=== PATIENT | male | born 1955 | race Caucasian/White ===

== ENCOUNTER 2025-03-10 16:55 | Inpatient (IN) | payer OTHER, SELFPAY ==
[2025-03-10] VITALS (9 sets, daily range): BP systolic 129–173; BP diastolic 69–103; BMI 36.7; BMI 35.5
[2025-03-10 11:54] LABS: Hematocrit 40.5 % (39.0-52.0); Hemoglobin 13.7 g/dL (13.0-18.0); Mean Corp Hgb Conc. 33.8 g/dL (33.0-37.0); Mean Corpuscular Volume 88.8 fL (80.0-94.0); Nucleated Red Blood Cells % 0 % (-); Platelet Count 137 10^3/uL (130-400); Red Cell Dist. Width 13.2 % (11.5-14.5)
[2025-03-10 12:10] LABS: COVID-19 Antigen Negative (Negative)
[2025-03-10] MEDS: DUONEB 3 ML INH (12:31)
[2025-03-10] MEDS: SOLU-MEDROL PF 125 MG IV (12:31)
[2025-03-10 12:33] LABS: ALT (SGPT) 24 U/L (0-50); AST (SGOT) 19 U/L (17-59); Albumin 4.0 g/dl (3.5-5.0); Alkaline Phosphatase 114 U/L (38-126); Blood Urea Nitrogen 14 mg/dl (9-20); Calcium 8.3 mg/dl (8.4-10.2); Carbon Dioxide 24 mmol/L (22-30); Chloride 104 mmol/L (98-107); Glucose 225 mg/dl (70-99); Potassium 4.1 mmol/L (3.5-5.1); Sodium 136 mmol/L (135-145); Total Protein 7.0 g/dl (6.3-8.2); Troponin I < 0.012 ng/ml; eGFR > 60.00
--- NOTE | 2025-03-10 12:40 | ED.GENMED ---
History of Present Illness
General
Chief Complaint: Breathing Problem
Time Seen by Provider: 03/10/25 11:37
History of Present Illness
History of Present Illness:
69-year-old male with with history of high blood pressure and diabetes presenting for shortness of breath. Patient reports symptoms started this morning, nonexertional. Noted a pressure in his chest with difficulty breathing, which prompted him to
call the ambulance. Per ambulance, was noted to be hypoxic to the 70s on room air. He was placed on nasal cannula. On arrival, patient was hypoxic to the 80s which has since improved here on nasal cannula. Patient was given 1 albuterol inhaler.
Denies any active tobacco abuse, however does note history of smoking, recently quit. Denies any known history of COPD. Reports a cough today. Denies any present chest pain. Denies known cardiac history. Denies abdominal pain or GI symptoms.
Denies additional acute medical complaints
Past History
Past History
ED Past Medical History: CVA, HTN and Other (TIA, hypertension, hyperlipidemia,)
Social History
Tobacco: Smoker
Alcohol: None
Personal: Single
Living: with family
Employment: Employed
Family History
Family History: Negative Diabetes, Hypertension or CAD
Phy Exam
Physical Exam
Physical Exam:
General: Well-appearing, no clinical signs of dehydration, nontoxic and in no acute distress
HEENT: protecting airway
Neck: appears supple
CV: Normal heart rate, regular rhythm, no evidence of cyanosis
Resp: Mild increased work of breathing, lungs clear to auscultation bilaterally
Abd: No distention
Extremities: No deformities, no swelling
Neuro: alert, no focal neurologic deficit
: deferred
Rectal: deferred
Psych: Normal affect
Skin: Intact
Scores
Heart Failure Risk
Heart Failure Risk Score: Yes
History of Stroke or TIA: No
History of intubation for respiratory distress: No
Heart rate on ED arrival >/= 110: No
SaO2 <90% on arrival on room air: Yes
HR >/=110 during 3min walk test (or too ill to perform test): No
ECG has acute ischemic changes: No
Urea >/=12mmol/L (BUN 33.6mg/dL): No
Serum CO2>/=35mmol/L: No
Troponin I or T elevated to [place] Level (0.4mg/dL): No
NT-proBNP >/=5,000ng/L (5,000pg/ml): No
HF Risk Score: 1
Admission Status: MEDIUM RISK 5.1% Consider observation or discharge to home with homecare & f/u visit to PCP/Insurance Checker, or SNF for treatment
Course
Orders/Labs/Results
Orders:
Orders
03/10/25 11:20
Electrocardiogram (*1) Urgent
Reason for Study: Shortness of Breath
CR Chest - 2 Views Urgent
Comment:
Reason For Exam: SOB
03/10/25 11:21
EKG- Treatment ONCE
03/10/25 11:26
COVID-19 Antigen Urgent
Source: Nasal Swab
Complete Blood Count/With Diff Urgent
Comprehensive Metabolic Panel Urgent
NT-proBNP Urgent
Troponin I Urgent
Influenza A+B Rapid Molecular Urgent
CARLO Source: Nasal Swab
Specimen Description:
03/10/25 12:16
Ipratropium/Albuterol Sulfate [Duoneb] 3 ml INH R NOW STA
MethylPREDNISolone PF [Solu-Medrol Pf] 125 mg IV NOW STA
03/10/25 15:36
Furosemide [Lasix] 40 mg IV NOW STA
Abnormal Lab Results
03/10/25
11:26
RBC 4.56 L 10^6/uL
(4.70-6.10)
MPV 12.3 H fL
(7.4-10.4)
Abs Immat Gran (auto) 0.1 H 10^3/uL
(0-0.05)
Immature Gran % 0.6 H %
(0-0.5)
Glucose 225 H mg/dl
(70-99)
Calcium 8.3 L mg/dl
(8.4-10.2)
03/10/25 11:26
03/10/25 11:26
Vital Signs
Initial and Last Documented VS:
Initial Vital Signs
Temp Pulse Resp BP Pulse Ox
98.5 F 113 28 167/103 90
03/10/25 11:22 03/10/25 11:22 03/10/25 11:22 03/10/25 11:22 03/10/25 11:22
Last Documented Vital Signs
Temp Pulse Resp BP Pulse Ox
98.5 F 85 14 135/79 96
03/10/25 11:22 03/10/25 15:41 03/10/25 15:41 03/10/25 15:41 03/10/25 15:41
MDM/Problems Addressed
MDM/Problems Addressed:
69-year-old male with prior history of tobacco abuse, hypertension, diabetes presenting for shortness of breath and chest pressure. Vital signs on arrival are significant for hypoxia and hypertension.
On exam, patient resting comfortably, mild increased work of breathing. Mild diminished air movement bilaterally with no focal abnormal lung sounds. Given patient's history, suspect possible underlying COPD, received an albuterol inhaler prior to
arrival with improvement of symptoms. EKG obtained on arrival, nonischemic. Lower suspicion for ACS. Notes that he has been coughing today, possible underlying pneumonia. Will obtain chest x-ray imaging and viral swabs. Will administer DuoNeb
and steroids and reassess for improvement
15:30 - On reassessment, patient does note some interval improvement. Labs show elevated BNP and chest x-ray shows concern for pulmonary edema. At this time concern for possible CHF component, new onset. Will administer dose of Lasix. Given
hypoxia on presentation, feel patient warrants admission for respiratory monitoring and cardiac consultation. Patient is in agreement
*Pulse Oximetry
SaO2: 94
Nasal Cannula flow liters per minute: 4
Patient hypoxic: yes
*EKG
Interpreted by ED Provider?: Yes
EKG Intrepretation Date: 03/10/25
EKG Intrepretation Time: 12:42
Interpretation: normal
Comparison EKG: no changes (12/27/19)
Heart Rate: 105
Rate: tachycardiac
Rhythm: sinus and PVC's
[place]: normal axis
Interval: normal interval
QRS Pattern: normal QRS
Ischemia: no ischemia
*Critical Care Note
Total Time (30-74mins, 75-104mins- exclusive of procedures): Not Applicable
ED Attending Note
-
Portions of this chart may have been created with voice recognition software.� Occasional wrong word or��sound alike� substitutions may have occurred due to the inherent limitations of voice recognition software.
Discharge Plan
Departure
Patient Disposition: Admit
Date of Disposition: 03/10/25
Time of Disposition: 15:37
Presentation/result/management discussed w/ accepting MD/DO: Hospitalist
Patient with high blood pressure during this ER visit?: No
Condition: Fair
Discharge Problem:
Hypoxia, COPD (chronic obstructive pulmonary disease), Pulmonary edema
Prescriptions:
No Action
atorvastatin 80 MG tablet
80 mg PO DAILY
furosemide 40 mg Tablet
80 mg PO DAILY
metformin 500 mg Tablet
500 mg PO BID
carvedilol 25 mg Tablet
25 mg PO BID
aspirin 325 mg Tablet
325 mg PO DAILY
glimepiride 2 mg Tablet
2 mg PO DAILY
amlodipine-benazepril 5-20 mg Capsule
1 cap PO DAILY
Centrum Silver Tablet
1 tab PO DAILY
Referrals:
Topkis,Vitaliy L., DO [Family Provider, Family Practice]
Interventions
Interventions:
*General Assessment Last Done: 03/10/25 11:22
*Neglect/Abuse Screening Last Done: 03/10/25 15:01
*ED COVID-19 Vaccine History Last Done: 03/10/25 15:01
*ED Influenza Vaccine History Last Done: 03/10/25 15:01
[facility] Fall Risk Assessment Tool Last Done: 03/10/25 15:01
*Risk Screen - Suicide (C-SSRS) Last Done: 03/10/25 15:01
ED- Cardiac Assessment Last Done: 03/10/25 15:03
ED- Pulmonary Assessment Last Done: 03/10/25 15:03
Discharge Date and Time
Print Language: SPANISH
--- NOTE | 2025-03-10 15:46 | HPS.HSE ---
Addendum entered and electronically signed by Kenji Benites MD 03/10/25 17:16:
This is an addendum to H&P written by Cathy Romero on 03/10/2025. �Patient seen and examined independently with MARINE STEWARD.
69-year-old male past medical history of CAD, diabetes, hypertension, hyperlipidemia, CVA, obesity, former smoker, presenting with chest pressure with shortness of breath and nonproductive cough. �No leg edema.
Vital signs showed tachycardia up to 113. �Hypoxemia requiring 4 L oxygen.
Labs show cardiac BNP 1500.
Chest x-ray shows mild to moderate CHF with very small bilateral effusions.
COVID and flu negative.
Patient with hypoxic respiratory failure secondary to likely acute CHF exacerbation/component of acute bronchitis. �40 IV Lasix twice daily. �Echocardiogram. Cardiology consulted.�Given methylprednisolone DuoNeb in ER. �Continue nebulizers.
Original Note:
Family Physician
-
Family Physician: Vitaliy Matthews
Chief Complaint
-
Chest pressure, shortness of breath
History of Present Illness
69-year-old male from home, where he lives alone, complaining of acute onset chest pressure followed by shortness of breath and hypoxia while sitting on the sofa today with. Per EMS he was noted to be hypoxic on 70% room air improved to 96% on 4 L
nasal cannula while in the ER. He was given albuterol inhaler due to wheezing. He reports recently quitting smoking 1 month ago. He reports he takes Lasix 80 mg in the a.m. for the past 5 years but is unsure why. He denies fever, chills,
palpitations, cough, abdominal pain, nausea, vomiting, diarrhea, urinary symptoms. He has past medical history of HTN, HLD, CAD/OK 2001, prior ischemic cardiomyopathy EF 30 to 35% 2014 resolved DM 2, former tobacco use stopped January 2025, CVA
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
Medical History
Past Medical History
Past Medical History: Reports Other
Additional Past Medical History:
HTN
HLD
CAD/OK 2001
prior ischemic cardiomyopathy EF 30 to 35% 2015 resolved
DM 2
former tobacco use stopped January 2025
CVA left parietal/occipital lobe infarct December 2019, TIA 2008
obesity class II.
Past Surgical History: Reports Other
Additional Past Surgical History:
Cardiac cath 2001
Social History
Tobacco: Former Smoker (40-year 1 pack a day quit January 2025)
Alcohol: None
Drug: None
Personal: Single
Living: Alone
Employment: Retired
Family History
Family History: Not pertinent
Allergies / Home Medications
Allergies reflects when Allergies were last updated in [employer].
Home Medications with original date entered in [employer]
Allergy/Medication List:
Allergies
Allergy/AdvReac Type Severity Reaction Status Date / Time
No Known Allergies Allergy Verified 03/10/25 11:22
Home Medications
atorvastatin 80 mg tablet 80 mg PO DAILY High cholesterol 12/27/19
amlodipine 5 mg-benazepril 20 mg capsule 1 cap PO DAILY 03/10/25
aspirin 325 mg tablet 325 mg PO DAILY 03/10/25
carvedilol 25 mg tablet 25 mg PO BID 03/10/25
furosemide 40 mg tablet 80 mg PO DAILY 03/10/25
glimepiride 2 mg tablet 2 mg PO DAILY 03/10/25
metformin 500 mg tablet 500 mg PO BID 03/10/25
sklyzcqwsmmu-afytsuih-celpcp tablet 1 tab PO DAILY 03/10/25
Review of Systems
-
History Source: Patient
A 12 point ROS was completed and negative except as noted: Yes
Constitutional: Denies Chills
EENT: Denies Sore Throat or Runny Nose
Respiratory: Reports Cough (Nonproductive) and Trouble Breathing
Cardiac: Reports Chest Pain (Chest pressure accompanied with shortness of breath); Denies Diaphoresis, Palpitations or Syncope
Abdomen/GI: Denies Nausea, Vomiting, Diarrhea or Constipated
: Denies Dysuria, Frequency, Flank Pain, Incontinence or Difficulty Voiding
Musculoskeletal: Denies Joint Pain, Joint Swelling or Edema
Skin: Denies Itching or Rash
Neurological: Denies Dizzy, Headache or Weakness
Endocrine: Reports No Symptoms
Hematologic/Lymphatic: Reports No Symptoms
Psych: Reports Calm
Physical Exam
Vital Signs
Vital Signs
Temp Pulse Resp BP Pulse Ox
98.5 F 85 14 135/79 96
03/10/25 11:22 03/10/25 15:41 03/10/25 15:41 03/10/25 15:41 03/10/25 15:41
Physical Exam
General: Conversant; No Pain, Fever or Chills
HEENT: NormoCephalic, Anicteric, Moist mucous membranes, PERRLA, [place] Conjunctivae, No Ptosis and Oxygen (4 L nasal cannula)
Respiratory: Clear; No Wheezes, Rales or Rhonchi
Cardiac: S1/S2 and Regular Rhythm; No Murmur, Rub, Gallop or Peripheral Edema
Breast: Deferred by me
GI: Soft, Non Tender, Non Distended, Normal Bowel Sounds and No Hepatosplenomegaly
Rectal: Deferred by Provider
Genito-urinary: Deferred by me
Musculoskeletal: No Clubbing, No Cyanosis and No Edema
Skin: Warm and Dry; No Rash
Neuro: AO x 3, No Motor Deficits, Nonfocal/grossly intact, Cranial Nerves Intact and No Sensory Deficits; No Slurred Speech, Facial Droop or Tremors
Psych: Calm
Laboratory Results
-
03/10/25 11:
03/10/25 11:
Laboratory Results
Total Bilirubin 0.4 mg/dl (0.2-1.3) 03/10/25:
AST 19 U/L (17-59) 03/10/25 11:26
ALT 24 U/L (0-50) 03/10/25 11:26
Alkaline Phosphatase 114 U/L (38-126) 03/10/25 11:26
Troponin I < 0.012 ng/ml 03/10/25 11:26
Data Reviewed
-
Diagnostic Radiology: Report Reviewed by me
Lab Data: Labs Reviewed by me
Impression/Plan
-
Impression/plan:
Admit to telemetry
#Acute CHF
#Acute hypoxic respiratory insufficiency secondary to acute CHF
COVID/influenza negative
BNP 1550
Pulse ox 90% RA, 96% 4 L nasal cannula(reported pulse ox at home by EMS 70%)
Patient was given methylprednisone in ER for wheezing
Nebs prn heezing
Patient took 80 mg Lasix p.o. prior to arrival
- IV IV Lasix 40 mg bid
- Consult [facility]
- check 2d echo
- PT consult
CXR: Mild to moderate CHF with small bilateral pleural effusions
2D echo 12/28/2019: EF 50-55%, normal LV S LVSF, no wall abnormalities, moderate LVH, normal diastolic function
Normal left ventricular chamber size. Normal left ventricular systolic
Aortic root borderline dilated at 3.7cm.
Compared to the previous echo 08/28/2008 there is no significant change.
#Chest pain likely secondary to hypoxia 70% prior to arrival
#CAD/OK 2001
#Prior ischemic cardiomyopathy EF 30 to 35% 2014 resolved
Troponin<0.012 will trend
-Continue beta-pepito, statin, aspirin
Patient reports used to follow with Dr. Melvin at [facility]
EKG: Sinus tach with PVCs 105 bpm, QTc B459 MS
#DM 2
Blood sugar 225
-Accu-Cheks with SSI low, check HgbA1c
-Continue glimepiride
-Hold metformin
#HTN
BP 144/83
-Continue beta-pepito
#HLD
-Check lipid profile
-Continue statin
#Former tobacco use
Reports stopped January 2025 prior 41 pack a day
#CVA�left parietal, occipital lobe infarct December 2019
#TIA 2008
#Chronic left upper eyelid droop
-Continue statin
#Class II obesity�BMI 36.6
Affects all aspects of care
Weight loss recommended
DVT prophylaxis
Subcu Lovenox
Full code
[2025-03-10] MEDS: LASIX 40 MG IV (16:29)
--- NOTE | 2025-03-10 16:38 | CON.CAR ---
Addendum entered and electronically signed by Jaxon Mcwilliams MD 03/10/25 16:58:
I saw and examined the patient.
The Vice President [employer]'s note was reviewed and I agree with the note.
Comment: Briefly, 69-year-old man past medical history of heart failure with recovered ejection fraction, CAD with remote [place], prior CVA status post Linq implant who presents with worsening dyspnea and was found to be hypoxic in the ER
subsequently admitted for acute heart failure.
proBNP here is elevated at 1500
Chest x-ray with bilateral infiltrates consistent with pulmonary edema
Agree with IV Lasix 40 mg twice daily
Follow daily weights, renal function/electrolytes
Check echo to reassess LVEF
Has not been seen in our office in several years. Would encourage adherence to medications and office follow up.
Original Note:
Consultation
Consultation Request
Date/Time Consultation Requested: 03/10/2025
Date/Time Consultation Performed: 03/10/2025
Requesting Provider: Cathy MONTIEL
Performing Provider: Irma Cantor PA-C for Dr. Mcwilliams
Reason for Consultation: CHF
Medical History
-
History of Present Illness:
HPI: Austin is a 69-year-old male past medical history of CVA, TIA, Linq, CAD with prior [place], AAA status post EVAR, hypertension, and hyperlipidemia. He presents for evaluation of sudden onset shortness of breath. He reports he was in his usual
state of health until earlier today he began feeling short of breath while sitting watching television. Called EMS and was reportedly hypoxic on arrival with initial SpO2 of 70% on room air. He was placed on 4L NC with improvement in his
oxygenation. Also noted to be wheezing at that time and was given albuterol inhaler. Denies any dietary changes or increased sodium intake. He reports he follows his weight and has lost 5 pounds over the past week. Denies any chest pain,
palpitations, dizziness, lightheadedness, or lower extremity edema. Feels well currently lying on stretcher. In ER, chest x-ray consistent with mild to moderate CHF. proBNP 1550. He was given a dose of IV Lasix as well as dose of steroids and
neb treatment. Admitted and cardiology consulted given suspicion of acute heart failure exacerbation.
PMH:
h/o CVA 12/2019
TIA 2008
s/p Linq 03/23/2020
CAD and [place] in 2001
AAA
s/p EVAR 04/2015 [facility]
HTN
Hyperlipidemia
FH CAD
Past Medical History
Past Medical History: Other (In HPI)
Social History
Tobacco: Former Smoker
Alcohol: None
Drug: None
Personal: Single
Living: Alone
Employment: Retired
Family History
Family History: Reviewed & Not Pertinent
Allergies / Home Medications
Allergy/AdvReac Type Severity Reaction Status Date / Time
No Known Allergies Allergy Verified 03/10/25 11:22
�Medication �Instructions �Recorded �Confirmed �Type
atorvastatin 80 mg tablet 80 mg PO DAILY High cholesterol 12/27/19 03/10/25 History
amlodipine 5 mg-benazepril 20 mg 1 cap PO DAILY 03/10/25 03/10/25 History
capsule
aspirin 325 mg tablet 325 mg PO DAILY 03/10/25 03/10/25 History
carvedilol 25 mg tablet 25 mg PO BID 03/10/25 03/10/25 History
furosemide 40 mg tablet 80 mg PO DAILY 03/10/25 03/10/25 History
glimepiride 2 mg tablet 2 mg PO DAILY 03/10/25 03/10/25 History
metformin 500 mg tablet 500 mg PO BID 03/10/25 03/10/25 History
iueufojwjixt-djavkaoo-pnxgjk tablet 1 tab PO DAILY 03/10/25 03/10/25 History
Review of Systems
-
History Source: Patient
All other systems: Negative unless noted
Physical Exam
Vital Signs
Temp Pulse Resp BP Pulse Ox
98.5 F 89 13 131/104 94
03/10/25 11:22 03/10/25 16:30 03/10/25 16:30 03/10/25 16:29 03/10/25 16:30
Lab Results
03/10/25 11:26
03/10/25 11:26
Troponin I < 0.012 ng/ml 03/10/25 11:26
Xbc-W-Jguvqeyfbzk Pept 1550 pg/ml 03/10/25 11:26
Physical Exam
General: Well Developed, Well Nourished and No Apparent Distress
HEENT: Normocephalic, Anicteric and Moist Mucous Membranes
Respiratory: Clear and Non Labored Respirations
Cardiac: S1/S2 and Regular Rhythm
Musculoskeletal: No Clubbing, No Cyanosis and Edema
Skin: Warm and Dry
Neuro: AO x 3 and Nonfocal/Grossly Intact
Psych: Calm
Impression / Plan
-
PCP: Dr. Matthews
Wool Hanker: Previously followed w/ [facility]. Seen last by [facility] as HV follow up 01/2020
Impression:
Presented with SOB
Acute HFpEF
h/o CVA 12/2019
TIA 2008
s/p Linq 03/23/2020
CAD and [place] in 2001
AAA
s/p EVAR 04/2015 [facility]
HTN
Hyperlipidemia
FH CAD
Echo 12/28/2019: EF 50 to 55%, moderate concentric LVH, aortic root borderline dilated at 3.7 cm
JANE 12/29/2019: EF 55%, no thrombus in the IVIS, lipomatous hypertrophy of the septum, no evidence of shunt by color-flow Doppler
Echo 03/10/2025: Study pending
Plan:
- Presented with shortness of breath which started earlier today while sitting on the couch. Hypoxic when EMS arrived, improved on 4L NC currently.
- Chest x-ray consistent with heart failure, proBNP 1550. Given a dose of IV Lasix in ER.
- Continue IV Lasix 40 mg twice daily. Follow daily weights, I&O's.
- Creat stable at 0.7. Follow with diuresis.
- Check echo. Prior echo in 2019 with EF 50 to 55%.
- Troponin negative. Denies chest pain.
- Reportedly wheezing on arrival, improved after given neb in ER. Also given dose of IV steroids. Defer management to primary service.
- EKG reviewed, sinus tachycardia with PVCs noted
- BP elevated, continue Coreg, amlodipine, benazepril.
- Continue aspirin, atorvastatin w/ h/o CAD, CVA.
- Linq monitor in place without afib noted.
- Wean O2 as able.
HPI: Austin is a 69-year-old male past medical history of CVA, TIA, Linq, CAD with prior [place], AAA status post EVAR, hypertension, and hyperlipidemia. He presents for evaluation of sudden onset shortness of breath. He reports he was in his usual
state of health until earlier today he began feeling short of breath while sitting watching television. Called EMS and was reportedly hypoxic on arrival with initial SpO2 of 70% on room air. He was placed on 4L NC with improvement in his
oxygenation. Also noted to be wheezing at that time and was given albuterol inhaler. Denies any dietary changes or increased sodium intake. He reports he follows his weight and has lost 5 pounds over the past week. Denies any chest pain,
palpitations, dizziness, lightheadedness, or lower extremity edema. Feels well currently lying on stretcher. In ER, chest x-ray consistent with mild to moderate CHF. proBNP 1550. He was given a dose of IV Lasix as well as dose of steroids and
neb treatment. Admitted and cardiology consulted given suspicion of acute heart failure exacerbation.
Data Reviewed
-
EKG: Tracing Personally Visualized and interpreted
Radiology: Report Reviewed by me
Labs: Labs Reviewed by me
Old Records: Reviewed
--- NOTE | 2025-03-10 16:53 | CM ---
Chart reviewed Spoke with pt at ED bedside
Lives alone in an apt
Independent with ADLs and ambulation
no DME
PCP Vitaliy Wilkinson
[facility] on [address]
no hx of VN nor SNF
DCP is to go home?
not sure if he needs home O2 ?
found 70% on RA by EMS
CM will continue to follow up for dcp needs
[2025-03-10] MEDS: LOVENOX SC (18:53)
--- NOTE | 2025-03-10 19:00 | PTCARENOTE ---
Patient was received and admitted at end of dayshift. Patient assessed. Patient on 3L NC. VSS. Patient oriented to the unit. Call cross in reach.
[2025-03-10 19:01] LABS: Glucose - Point of Care 230 mg/dl (70-99)
[2025-03-10 19:28] LABS: Troponin I 0.021 ng/ml
[2025-03-10] MEDS: COREG 25 MG PO (19:41)
[2025-03-10 21:36] LABS: Glucose - Point of Care 289 mg/dl (70-99)
[2025-03-11] VITALS (7 sets, daily range): BP systolic 112–134; BP diastolic 67–83; PULSE 84; O2SAT 96; BMI 35.2
[2025-03-11 01:43] LABS: Troponin I 0.017 ng/ml
[2025-03-11 06:48] LABS: Hematocrit 35.7 % (39.0-52.0); Hemoglobin 12.3 g/dL (13.0-18.0); Mean Corp Hgb Conc. 34.5 g/dL (33.0-37.0); Mean Corpuscular Volume 88.6 fL (80.0-94.0); Nucleated Red Blood Cells % 0 % (-); Platelet Count 128 10^3/uL (130-400); Red Cell Dist. Width 13.0 % (11.5-14.5)
[2025-03-11 07:14] LABS: ALT (SGPT) 23 U/L (0-50); AST (SGOT) 16 U/L (17-59); Albumin 3.8 g/dl (3.5-5.0); Alkaline Phosphatase 84 U/L (38-126); Blood Urea Nitrogen 15 mg/dl (9-20); Calcium 8.3 mg/dl (8.4-10.2); Carbon Dioxide 29 mmol/L (22-30); Chloride 100 mmol/L (98-107); Estimated Creatinine Clearance > 125 ml/min; Glucose 193 mg/dl (70-99); HDL Cholesterol 25 mg/dl; LDL Cholesterol, Calculated 123 mg/dl; Magnesium 1.8 mg/dl (1.6-2.3); Potassium 4.0 mmol/L (3.5-5.1); Sodium 135 mmol/L (135-145); Total Protein 6.6 g/dl (6.3-8.2); Very Low Density Lipoprotein 13 mg/dl (0-30); eGFR > 60.00
[2025-03-11 07:21] LABS: Glucose - Point of Care 230 mg/dl (70-99)
[2025-03-11] MEDS: THERAGRAN 1 TABLET PO (09:17)
[2025-03-11] MEDS: NORVASC 5 MG PO (09:17)
[2025-03-11] MEDS: COREG 25 MG PO (09:18)
[2025-03-11] MEDS: AMARYL 2 MG PO (09:18)
[2025-03-11] MEDS: LIPITOR 80 MG PO (09:18)
[2025-03-11] MEDS: ZESTRIL 20 MG PO (09:18)
[2025-03-11] MEDS: LASIX 40 MG IV ×2 (09:18→15:11)
[2025-03-11] MEDS: ASPIRIN 325 MG PO (09:18)
--- NOTE | 2025-03-11 10:18 | W.PN.CARDCBS ---
Today's Communication / Plan
-
Continue IV Lasix
Wean oxygen as able
Impression / Plan
-
PCP: Dr. Matthews
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 Seen last by [facility] as HV follow up 01/2020
Impression:
Presented with SOB
Acute HFpEF
h/o CVA 12/2019
TIA 2008
s/p Linq 03/23/2020
CAD and [place] in 2001
AAA
s/p EVAR 04/2015 [facility]
HTN
Hyperlipidemia
FH CAD
Echo 12/28/2019: EF 50 to 55%, moderate concentric LVH, aortic root borderline dilated at 3.7 cm
JANE 12/29/2019: EF 55%, no thrombus in the IVIS, lipomatous hypertrophy of the septum, no evidence of shunt by color-flow Doppler
Echo 03/13/2025: Study pending
Plan:
- Presented with shortness of breath which started earlier today while sitting on the couch. Hypoxic when EMS arrived, improved on supplemental O2.
- Chest x-ray consistent with heart failure, proBNP 1550
- Continue IV Lasix 40 mg twice daily
- Follow daily weights, I&O's, Cr/lytes
- Wean O2 as able
- Check echo. Prior echo in 2019 with LVEF 50 to 55%.
- Reportedly wheezing on arrival, improved after given neb in ER. Also given dose of IV steroids. Defer management to primary service.
- BP elevated, continue Coreg, amlodipine, benazepril.
- Continue aspirin, atorvastatin w/ h/o CAD, CVA.
- Linq monitor in place without afib noted.
HPI: Austin is a 69-year-old male past medical history of CVA, TIA, Linq, CAD with prior [place], AAA status post EVAR, hypertension, and hyperlipidemia. He presents for evaluation of sudden onset shortness of breath. He reports he was in his usual
state of health until earlier today he began feeling short of breath while sitting watching television. Called EMS and was reportedly hypoxic on arrival with initial SpO2 of 70% on room air. He was placed on 4L NC with improvement in his
oxygenation. Also noted to be wheezing at that time and was given albuterol inhaler. Denies any dietary changes or increased sodium intake. He reports he follows his weight and has lost 5 pounds over the past week. Denies any chest pain,
palpitations, dizziness, lightheadedness, or lower extremity edema. Feels well currently lying on stretcher. In ER, chest x-ray consistent with mild to moderate CHF. proBNP 1550. He was given a dose of IV Lasix as well as dose of steroids and
neb treatment. Admitted and cardiology consulted given suspicion of acute heart failure exacerbation.
Progress Note - Marketing Communications Leader
Subjective
Date of Service: March 11, 2025
No acute overnight events. Patient tells me his breathing is improved today but still requiring 3 L supplemental oxygen. No edema or abdominal distention by his report; tells me that symptoms are all 'in the chest'
Objective
Labs:
03/11/25 06:23
03/11/25 06:23
Labs
Hgb 12.3 g/dL (13.0-18.0) L 03/11/25 06:23
Hct 35.7 % (39.0-52.0) L 03/11/25 06:23
Plt Count 128 10^3/uL (130-400) L 03/11/25 06:23
Sodium 135 mmol/L (135-145) 03/11/25 06:23
Potassium 4.0 mmol/L (3.5-5.1) 03/11/25 06:23
BUN 15 mg/dl (9-20) 03/11/25 06:23
Creatinine 0.7 mg/dL (0.7-1.3) 03/11/25 06:23
Glucose 193 mg/dl (70-99) H 03/11/25 06:23
Troponins
03/10/25 03/10/25 03/11/25
11:26 18:58 01:09
Troponin I < 0.012 0.021 D 0.017
Vital Signs and I&O:
Vital Signs
Temp Pulse Resp BP Pulse Ox
98.6 F 84 17 114/71 97
03/11/25 07:21 03/11/25 09:18 03/11/25 07:21 03/11/25 09:18 03/11/25 07:21
Vital Signs
Temp Pulse Resp BP Pulse Ox
98.6 F 84 17 114/71 97
03/11/25 07:21 03/11/25 09:18 03/11/25 07:21 03/11/25 09:18 03/11/25 07:21
Intake & Output
03/09/25 03/10/25 03/11/25 03/12/25
06:59 06:59 06:59 06:59
Intake Total 480 / 480
Balance 480 / 480
Physical Exam
Physical Exam
Gen: NAD, AAOx3
HEENT: NC/AT, sclera anicteric
Neck: No JVD
CV: RRR, NL s1/s2, no MRG
Lungs: Decreased breath sounds at the bases bilaterally on 3 L supplemental O2
Abd: S/ND
Ext: No LE edema
Skin: Warm, dry
Neuro: Non-focal
[2025-03-11 10:23] LABS: Glycohemoglobin (HgbA1c) 8.5 % (4.0-5.9)
[2025-03-11 12:09] LABS: Glucose - Point of Care 188 mg/dl (70-99)
--- NOTE | 2025-03-11 13:55 | W.PN.HOSP.TC ---
Today's Communication/Plan
-
continue current care
Assessment / Plan
Assessment / Plan
69-year-old man comes in with acute onset chest pressure followed by shortness of breath and hypoxia while sitting on the sofa today with. He was noted to be hypoxic on 70% room air improved to 96% on 4 L nasal cannula while in the ER. He was
given albuterol inhaler due to wheezing. He reports recently quitting smoking 1 month ago. He reports he takes Lasix 80 mg in the a.m. for the past 5 years but is unsure why. He denies fever, chills, palpitations, cough, abdominal pain, nausea,
vomiting, diarrhea, urinary symptoms. He has past medical history of:
HTN,
HLD,
CAD/[place] 2001,
prior ischemic cardiomyopathy EF 30 to 35% 2014
resolved DM 2,
former tobacco use stopped January 2025,
CVA left parietal/occipital lobe infarct December 2019,
TIA 2008, obesity class II.
Impression/plan:
1. Acute CHF - improving
Acute hypoxic respiratory insufficiency secondary to acute CHF
COVID/influenza negative
BNP 1550
Pulse ox 90% RA, 96% 4 L nasal cannula(reported pulse ox at home by EMS 70%)
Patient was given methylprednisone in ER for wheezing
Nebs prn wheezing
IV IV Lasix 40 mg bid
Consulted [facility], their note:
'- Presented with shortness of breath which started earlier today while sitting on the couch.
Hypoxic when EMS arrived, improved on supplemental O2.
- Chest x-ray consistent with heart failure, proBNP 1550
- Continue IV Lasix 40 mg twice daily
- Follow daily weights, I&O's, Cr/lytes
- Wean O2 as able
- Check echo. Prior echo in 2019 with LVEF 50 to 55%.
- Reportedly wheezing on arrival, improved after given neb in ER.
Also given dose of IV steroids.
Defer management to primary service.
- BP elevated, continue Coreg, amlodipine, benazepril.
- Continue aspirin, atorvastatin w/ h/o CAD, CVA.
- Linq monitor in place without afib noted.'
check 2d echo
PT consult
2. Chest pain likely secondary to hypoxia (70% prior to arrival) - improving
CAD/[place] 2001
Prior ischemic cardiomyopathy EF 30 to 35% 2015 resolved
Troponin<0.012 will continue to trend
Continue beta-pepito, statin, aspirin
3. DM 2
Blood sugar 225
Accu-Cheks with SSI low, check HgbA1c
Continue glimepiride
Hold metformin while inpatient
4. Essential HTN
Continue beta-pepito
5. HLD
Checked lipid profile - Very low HDL
Continue statin
Outpatient follow up. He may need to adjust the dose or type.
6. Former tobacco use
Reports stopped January 2025 prior 41 pack a day
7. CVA�left parietal, occipital lobe infarct December 2019
TIA 2008
Chronic left upper eyelid droop
Continue statin
8. Class II obesity�BMI 36.6
Affects all aspects of care
Weight loss recommended
DVT prophylaxis - Subcu Lovenox
Code status - Full code
Anticipated Discharge: 24 - 48 hours
Subjective/Interval History
-
Date of Service: March 11, 2025
Feels OK. No new issues.
Objective Data
-
Labs:
Laboratory Results
03/11/25
06:23
WBC 6.1
Hgb 12.3 L
Hct 35.7 L
Plt Count 128 L
Sodium 135
Potassium 4.0
Chloride 100
Carbon Dioxide 29
BUN 15
Creatinine 0.7
Glucose 193 H
Calcium 8.3 L
Total Bilirubin 0.5
AST 16 L
ALT 23
Alkaline Phosphatase 84
Vital Signs:
Vital Signs
Temp Pulse Resp BP Pulse Ox
98.1 F 90 17 134/75 97
03/11/25 11:27 03/11/25 11:27 03/11/25 11:27 03/11/25 11:27 03/11/25 11:27
I&O
03/10/25 03/11/25 03/12/25
06:59 06:59 06:59
Intake Total 480 / 480
Balance 480 / 480
Review of Systems
-
History Source: Patient
All other systems: Reviewed and negative
Physical Exam
-
General: Well Developed, Well Nourished, No Apparent Distress, Comfortable and Obese
HEENT: Normocephalic, Atraumatic, Moist Mucous Membranes, Nose Appears Normal and Ears Appear Normal
Respiratory: Decreased Breath Sounds
Cardiac: Regular Rhythm and S1/S2
GI: Soft, Nontender and Nondistended
Musculoskeletal: No Clubbing and No Cyanosis
Skin: Warm and Dry; Negative Rash
Neuro: Awake, Alert and Oriented
Psych: Calm
Data Reviewed
-
Labs: Labs Reviewed by me
--- NOTE | 2025-03-11 14:57 | PTCARENOTE ---
Patient's sugars for breakfast and lunch 230 and 188, patient ordered sliding scale insulin but refusing for this RN, states he does not want insulin at all this admission. Cooperative with [employer]. made aware, no new orders.
[2025-03-11] MEDS: LOVENOX 40 MG SC (17:12)
[2025-03-11 17:28] LABS: Glucose - Point of Care 172 mg/dl (70-99)
[2025-03-11] MEDS: COREG PO (19:50)
[2025-03-11 22:08] LABS: Glucose - Point of Care 159 mg/dl (70-99)
[2025-03-12 03:28] VITALS: BP 122/81
[2025-03-12 06:00] VITALS: BMI 34.9
[2025-03-12 07:35] VITALS: BP 137/79
[2025-03-12 08:40] LABS: Glucose - Point of Care 219 mg/dl (70-99)
[2025-03-12] MEDS: NORVASC 5 MG PO (09:43)
[2025-03-12] MEDS: LIPITOR 80 MG PO (09:43)
[2025-03-12] MEDS: ASPIRIN 325 MG PO (09:43)
[2025-03-12] MEDS: AMARYL 2 MG PO (09:43)
[2025-03-12] MEDS: COREG 25 MG PO (09:43)
[2025-03-12] MEDS: THERAGRAN 1 TABLET PO (09:44)
[2025-03-12] MEDS: LASIX 40 MG IV (09:44)
[2025-03-12] MEDS: ZESTRIL 20 MG PO (09:44)
[2025-03-12] MEDS: FLUSH (NSS) 2 FLUSH IV (09:46)
[2025-03-12 10:01] LABS: Hematocrit 37.9 % (39.0-52.0); Hemoglobin 12.7 g/dL (13.0-18.0); Mean Corp Hgb Conc. 33.5 g/dL (33.0-37.0); Mean Corpuscular Volume 89.4 fL (80.0-94.0); Platelet Count 120 10^3/uL (130-400); Red Cell Dist. Width 13.2 % (11.5-14.5)
[2025-03-12 10:34] LABS: ALT (SGPT) 25 U/L (0-50); AST (SGOT) 20 U/L (17-59); Albumin 3.9 g/dl (3.5-5.0); Alkaline Phosphatase 78 U/L (38-126); Blood Urea Nitrogen 20 mg/dl (9-20); Calcium 8.4 mg/dl (8.4-10.2); Carbon Dioxide 28 mmol/L (22-30); Chloride 100 mmol/L (98-107); Estimated Creatinine Clearance > 125 ml/min; Glucose 189 mg/dl (70-99); Potassium 3.6 mmol/L (3.5-5.1); Sodium 136 mmol/L (135-145); Total Protein 6.9 g/dl (6.3-8.2); eGFR > 60.00
--- NOTE | 2025-03-12 11:12 | W.DCSUMMARY ---
Discharge Summary
Discharge Data
Date of Admission: 03/10/25
Date of Discharge: 03/12/25
Total time spent discharging patient (in min): 50
-
Pending Results: No
Hospital Course
Initial presentation
69-year-old man comes in with acute onset chest pressure followed by shortness of breath and hypoxia while sitting on the sofa. He was noted to be hypoxic on 70% room air improved to 96% on 4 L nasal cannula while in the ER. He was given albuterol
inhaler due to wheezing. He reports recently quitting smoking 1 month ago. He reports he takes Lasix 80 mg in the a.m. for the past 5 years but is unsure why. He denies fever, chills, palpitations, cough, abdominal pain, nausea, vomiting,
diarrhea, urinary symptoms.
Conditions present on admit
HTN,
HLD,
CAD/[place] 2001,
prior ischemic cardiomyopathy EF 30 to 35% 2014
resolved DM 2,
former tobacco use stopped January 2025,
CVA left parietal/occipital lobe infarct December 2019,
TIA 2008, obesity class II.
Admit diagnosis / discharge diagnosis
Acute heart failure, with preserved output
Chest pain
diabetes
Obesity
hyperlipedimia
high blood pressure
Hospital course by problem:
1. Acute CHF - resolved
He came in with Acute hypoxic respiratory insufficiency secondary to acute CHF, and was COVID/influenza negative. His BNP was 1550.
Pulse ox 90% RA, 96% 4 L nasal cannula(reported pulse ox at home by EMS 70%)
Patient was given methylprednisone in ER for wheezing and Nebs prn wheezing
He did well and at time of discharge is asymptomatic on RA.
He was initially given IV Lasix 40 mg bid, and this was switched to 40 PO BID.
He was seen by cardiology and will follow up with them as an outpatient.
2. Chest pain likely secondary to hypoxia (70% prior to arrival) - resolved
CAD/[place] 2001
Prior ischemic cardiomyopathy EF 30 to 35% 2014 resolved
Troponin<0.012
We Continued beta-pepito, statin, aspirin - recommend to also continue this as outpatient
3. DM 2 - chronic
Blood sugar 225
Accu-Cheks with SSI low was ordered, but he refused the insulin, we checked HgbA1c and it was 8.5.
Continue glimepiride
We held metformin while inpatient, this can be resumed as outpatient
4. Essential HTN
Continue the beta-pepito
5. HLD
Checked lipid profile - Very low HDL
Continue statin
Outpatient follow up. He may need to adjust the dose or type.
6. Former tobacco use
Reports stopped January 2025 prior 41 pack a day
Encourage ongoing cessation
7. CVA�left parietal, occipital lobe infarct December 2019
TIA 2008
Chronic left upper eyelid droop
Continue statin
8. Class II obesity�BMI 36.6
Affects all aspects of care
Weight loss recommended
DVT prophylaxis during hospitalization was Subcu Lovenox
Code status during hospitalization was Full code
Exam on day of discharge
General: Well Developed, Well Nourished, No Apparent Distress, Comfortable and Obese
HEENT: Normocephalic, Atraumatic, Moist Mucous Membranes, Nose Appears Normal and Ears Appear Normal
Respiratory: Clear
Cardiac: Regular Rhythm and S1/S2
GI: Soft, Nontender and Nondistended
Skin: Warm and Dry; Negative Rash
Neuro: Awake, Alert and Oriented
Psych: Calm
Discharge Plan
-
Patient Disposition: Home (Routine Discharge)
Discharge Diagnosis/Procedures: Heart failure
Diet: As tolerated and Low Sodium
Activity: As tolerated
Driving Restrictions: As prior to admission
Bathing Restrictions: None
Referrals:
Vitaliy Matthews DO [Family Provider, Family Practice]
Prescriptions:
Continued
atorvastatin 80 MG tablet
80 mg PO DAILY
furosemide 40 mg Tablet
80 mg PO DAILY
metformin 500 mg Tablet
500 mg PO BID
carvedilol 25 mg Tablet
25 mg PO BID
aspirin 325 mg Tablet
325 mg PO DAILY
glimepiride 2 mg Tablet
2 mg PO DAILY
amlodipine-benazepril 5-20 mg Capsule
1 cap PO DAILY
[id number]-[id number]-blauyq Tablet
1 tab PO DAILY
Discharge Orders:
Discharge Patient (As Directed); Ordered 03/12/25
Ordered By: Prosper Martin
Discharge Date and Time
Print Language: DANISH
[2025-03-12 11:36] VITALS: BP 130/76
--- NOTE | 2025-03-12 12:27 | W.PN.CARDCBS ---
Today's Communication / Plan
-
Transition to p.o. Lasix 40 mg twice daily
My office will reach out to arrange follow-up appointment
Check echo as an outpatient
Impression / Plan
-
PCP: Dr. Matthews
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 Seen last by [facility] as HV follow up 01/2020
Impression:
Presented with SOB
Acute HF
h/o CVA 12/2019
TIA 2008
s/p Linq 03/23/2020
CAD and [place] in 2001
AAA
s/p EVAR 04/2015 [facility]
HTN
Hyperlipidemia
FH CAD
Echo 12/28/2019: EF 50 to 55%, moderate concentric LVH, aortic root borderline dilated at 3.7 cm
JANE 12/29/2019: EF 55%, no thrombus in the IVIS, lipomatous hypertrophy of the septum, no evidence of shunt by color-flow Doppler
Echo 03/13/2025: Study pending
Plan:
- Presented with shortness of breath which started earlier today while sitting on the couch. Hypoxic when EMS arrived, improved on supplemental O2.
- Chest x-ray consistent with heart failure, proBNP 1550
- Responded well to IV Lasix 40 mg twice daily and O2 has been weaned off
- Ok to transition to PO lasix 40mg BID
- Reviewed importance of daily weight and Na restriction
- Outpatient echo. Prior echo in 2019 with LVEF 50 to 55%.
- BP initially elevated, but now improved. Continue Coreg, amlodipine, benazepril.
- Continue aspirin, atorvastatin w/ h/o CAD, CVA.
- Linq monitor in place without afib noted.
Stable cardiac status. Outpatient follow-up to be arranged.
HPI: Austin is a 69-year-old male past medical history of CVA, TIA, Linq, CAD with prior [place], AAA status post EVAR, hypertension, and hyperlipidemia. He presents for evaluation of sudden onset shortness of breath. He reports he was in his usual
state of health until earlier today he began feeling short of breath while sitting watching television. Called EMS and was reportedly hypoxic on arrival with initial SpO2 of 70% on room air. He was placed on 4L NC with improvement in his
oxygenation. Also noted to be wheezing at that time and was given albuterol inhaler. Denies any dietary changes or increased sodium intake. He reports he follows his weight and has lost 5 pounds over the past week. Denies any chest pain,
palpitations, dizziness, lightheadedness, or lower extremity edema. Feels well currently lying on stretcher. In ER, chest x-ray consistent with mild to moderate CHF. proBNP 1550. He was given a dose of IV Lasix as well as dose of steroids and
neb treatment. Admitted and cardiology consulted given suspicion of acute heart failure exacerbation.
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
Subjective
Date of Service: March 12, 2025
No acute overnight events. Patient feels better today and has been off of oxygen. Tells me her breathing is comfortable.
Objective
Labs:
03/12/25 08:47
03/12/25 08:47
Labs
Hgb 12.7 g/dL (13.0-18.0) L 03/12/25 08:47
Hct 37.9 % (39.0-52.0) L 03/12/25 08:47
Plt Count 120 10^3/uL (130-400) L 03/12/25 08:47
Sodium 136 mmol/L (135-145) 03/12/25 08:47
Potassium 3.6 mmol/L (3.5-5.1) 03/12/25 08:47
BUN 20 mg/dl (9-20) 03/12/25 08:47
Creatinine 0.7 mg/dL (0.7-1.3) 03/12/25 08:47
Glucose 189 mg/dl (70-99) H 03/12/25 08:47
Troponins
03/10/25 03/10/2503/11/25
11:26 18:58 01:09
Troponin I < 0.012 0.021 D 0.017
Vital Signs and I&O:
Vital Signs
Temp Pulse Resp BP Pulse Ox
98.4 F 84 18 130/76 95
03/12/25 11:36 03/12/25 11:36 03/12/25 11:36 03/12/25 11:36 03/12/25 11:36
Vital Signs
Temp Pulse Resp BP Pulse Ox
98.4 F 84 18 130/76 95
03/12/25 11:36 03/12/25 11:36 03/12/25 11:36 03/12/25 11:36 03/12/25 11:36
Intake & Output
03/10/25 03/11/25 03/12/25 03/13/25
06:59 06:59 06:59 06:59
Intake Total 480 / 480 1360 / 1360
Output Total 400 / 400
Balance 480 / 480 960 / 960
Physical Exam
Physical Exam
Gen: NAD, AAOx3
HEENT: NC/AT, sclera anicteric
Neck: No JVD
CV: RRR, NL s1/s2, no M/R/G
Lungs: CTAB
Abd: S/ND
Ext: No LE edema
Skin: Warm, dry
Neuro: Non-focal
== END 2025-03-12 12:10 | disposition home or self-care (01) | DRG 291 ==
LOC: 2 NORTH 16:55
PROVIDERS: Clinical Nurse Specialist Family Health; ADMITTING PHYSICIAN Hospitalist; ATTENDING PHYSICIAN Internal Medicine; CONSULT PHYSICIAN Internal Medicine Cardiovascular Disease; EMERGENCY PHYSICIAN Student in an Organized Health Care Education/Training Program; FAMILY PHYSICIAN Family Medicine
DX: I11.0 Hypertensive heart disease with heart failure (principal); I50.33 Acute on chronic diastolic (congestive) heart failure; F17.200 Nicotine dependence, unspecified, uncomplicated; Z11.52 Encounter for screening for COVID-19; J20.9 Acute bronchitis, unspecified; R06.89 Other abnormalities of breathing; R09.02 Hypoxemia; E11.9 Type 2 diabetes mellitus without complications; Z86.73 Personal history of transient ischemic attack (TIA), and cerebral infarction without residual deficits; E66.812 Obesity, class 2; Z68.36 Body mass index [BMI] 36.0-36.9, adult; Z79.82 Long term (current) use of aspirin; Z79.899 Other long term (current) drug therapy
CPT/HCPCS: 71046; 80053; 80061; 82962; 83036; 83735; 83880; 84484; 85025; 85027; 87502; 87811; 93005; 94640; 96374; 96375; 97161; 99285; 99406